=== PATIENT | female | born 1990 | race Two or more races ===

== ENCOUNTER 2017-08-21 10:09 | Emergency (ER) | payer OTHER ==
[~2017-08-21] VITALS: Ht 157.5 cm; Wt 94.9 kg
[2017-08-21 10:14] VITALS: Ht 157.5 cm; Wt 94.9 kg
[2017-08-21 11:01] VITALS: BP 134/93
== END 2017-08-21 11:02 | disposition home or self-care (01) ==
LOC: ED 10:09
DX: J02.9 Acute pharyngitis, unspecified (principal)
CPT/HCPCS: J1885; J7030

== ENCOUNTER → 2018-01-05 | Outpatient (CLI) | payer OTHER ==
[2018-01-05 08:23] LABS: BASOPHIL % 0.4 % (0-2)
[2018-01-05 08:30] LABS: ALBUMIN 3.7 g/dL (3.4-5.0); ALKALINE PHOSPHATASE 115 U/L (46-116); ALT/SGPT 147 U/L (14-59); AST/SGOT 65 U/L (15-37); BILIRUBIN TOTAL 0.3 mg/dL (0.20-1.00); CALCIUM 8.8 mg/dL (8.5-10.1); CARBON DIOXIDE 25.7 mmol/L (21-32); CHLORIDE SERUM 104 mmol/L (98-107); CREATININE SERUM 0.7 mg/dL (0.6-1.0); GFR1 > 60 mL/min; GLUCOSE SERUM 102 mg/dL (74-106); POTASSIUM SERUM 4.1 mmol/L (3.5-5.1); SODIUM SERUM 138 mmol/L (136-145); TOTAL PROTEIN, SERUM 7.9 g/dL (6.4-8.2)
[2018-01-05 09:03] LABS: PLATELET COUNT 210 x10^3mcL (130-400); RED CELL DISTRIBUTION WIDTH 13.2 % (11.5-14.5)
[2018-01-06 08:19] LABS: PROLACTIN 18.2 ng/mL (4.8-23.3)
== END | disposition home or self-care (01) ==
LOC: LB 07:39
PROVIDERS: Obstetrics & Gynecology
DX: Z01.419 Encounter for gynecological examination (general) (routine) without abnormal findings (principal)